=== PATIENT | male | born 1995 | race Two or more races ===

== ENCOUNTER 2024-06-08 21:23 | Emergency (ER) | payer MEDICAID, OTHER ==
[~2024-06-08] VITALS: Ht 170.2 cm; Wt 96.3 kg
[2024-06-08 21:47] VITALS: BP 119/69; PULSE 68; RESP 18; O2SAT 98
== END 2024-06-08 22:29 | disposition home or self-care (01) ==
LOC: ER 21:23
DX: S61.012A Laceration without foreign body of left thumb without damage to nail, initial encounter (principal); W45.8XXA Other foreign body or object entering through skin, initial encounter; Y93.89 Activity, other specified; Y92.89 Other specified places as the place of occurrence of the external cause; Y99.8 Other external cause status
CPT/HCPCS: 12001